=== PATIENT | male | born 2000 | race Hispanic/Latino ===

== ENCOUNTER 2021-03-31 07:17 | Outpatient (CLI) | payer BC ==
[2021-03-31 18:54] LABS: SARS-CoV-2 PCR by NAA Not Detected (NotDetected)
== END 2021-03-31 07:18 | disposition home or self-care (01) ==
LOC: LABBT 07:17
PROVIDERS: ATTEND Student in an Organized Health Care Education/Training Program
DX: Z01.812 Encounter for preprocedural laboratory examination (principal); J34.2 Deviated nasal septum; J34.3 Hypertrophy of nasal turbinates; J34.89 Other specified disorders of nose and nasal sinuses; Z20.822 Contact with and (suspected) exposure to COVID-19
CPT/HCPCS: U0003; U0005

== ENCOUNTER 2021-04-01 07:16 | Day surgery (SDC) | payer BC ==
[2021-03-31 11:13] VITALS: BMI 26.6
[2021-04-01] MEDS ORDERED: AFRIN NASAL MIST 15 ML BOT ONE ×2 (08:04→08:06)
[2021-04-01] MEDS ORDERED: Bacitracin Zinc Ointment 30 gm TUBE ONE (08:06)
[2021-04-01] MEDS ORDERED: Lidocaine 1% w/Epinephrine 1:100K 20 ML VIAL ONE (08:06)
[2021-04-01] MEDS ORDERED: Fentanyl 250 MCG/5 ML VIAL ONE (08:51)
[2021-04-01] MEDS ORDERED: Propofol 500 MG/50 ML VIAL ONE (09:05)
[2021-04-01] MEDS ORDERED: Midazolam HCl 2 mg/2 ml Vial ONE (09:05)
[2021-04-01] MEDS ORDERED: Acetaminophen 500 MG TAB ONE (09:05)
[2021-04-01] MEDS ORDERED: PROPOFOL 200 MG/20 ML VIAL ONE (09:11)
[2021-04-01] MEDS ORDERED: Rocuronium Bromide 10 MG/ML (10ML VIAL) ONE (09:11)
[2021-04-01] MEDS ORDERED: Lidocaine 1% PF 5 ML VIAL ONE (09:11)
[2021-04-01] MEDS ORDERED: Ondansetron PF 4 MG/2 ML Vial ONE (09:11)
[2021-04-01] MEDS ORDERED: Dexamethasone 20 MG/5 ML VIAL ONE (09:11)
[2021-04-01] MEDS ORDERED: PHENYLEPHRINE-NS 100 MCG/ML 10 ML SYRINGE ONE (09:11)
[2021-04-01] MEDS ORDERED: Fentanyl 100 MCG/2 ML VIAL ONE (11:34)
== END 2021-04-01 12:23 | disposition home or self-care (01) ==
LOC: SDC 07:16
PROVIDERS: ATTEND Student in an Organized Health Care Education/Training Program
PROC: 09SM0ZZ Reposition Nasal Septum, Open Approach (ICD-10-PCS; principal; 2021-04-01)
PROC: 09QK3ZZ Repair Nasal Mucosa and Soft Tissue, Percutaneous Approach (ICD-10-PCS; principal; 2021-04-01)
PROC: 09TL0ZZ Resection of Nasal Turbinate, Open Approach (ICD-10-PCS; principal; 2021-04-01)
DX: J34.2 Deviated nasal septum (principal); J34.3 Hypertrophy of nasal turbinates; J34.89 Other specified disorders of nose and nasal sinuses; S02.2XXA Fracture of nasal bones, initial encounter for closed fracture; F90.9 Attention-deficit hyperactivity disorder, unspecified type; Z79.899 Other long term (current) drug therapy; X58.XXXA Exposure to other specified factors, initial encounter
CPT/HCPCS: C1889; J1100; J2250; J2405; J2704; J3010